=== PATIENT | male | born 1990 | race African-American/Black ===

== ENCOUNTER 2016-11-28 20:49 | Emergency (ER) | payer OTHER ==
[~2016-11-28] VITALS: Ht 190.5 cm; Wt 98.4 kg
[2016-11-28 20:49] VITALS: BP 138/84
[~2016-11-28 20:49] MED LIST: METH-37 PO; NAPR500T3 PO; TRAM50TA PO
[2016-11-28] MEDS ORDERED: METH4TAB2 PO (21:18)
--- NOTE | 2016-11-28 21:18 | PHYS DOC ---
Past History Past Medical History: No Pertinent History Past Surgical History: No Surgical History Alcohol Use: None Drug Use: None Adult General Chief Complaint Chief Complaint: SKIN RASH/ABSCESS HPI HPI Patient is a 26 year old male who presents with rash. 3-4 weeks ago he was out camping and developed a spot on his back and upper buttock area. It was initially pruritic. He was seen by physician and was diagnosed as fungal infection placed on antifungal cream. That area has improved significantly. Now has developed a rash on his arms and legs that started out as small clear blisters break open minimal scabbing heel. This seemed to be spreading. No purulent drainage however. No fever. He has scattered with no obvious pattern. No fever or chills. No other complaints or injuries. Review of Systems Review of Systems Constitutional: Denies fever or chills Musculoskeletal: Denies back pain or joint pain Integument: See history of present illness Neurologic: Denies headache Allergies Allergies Allergies Coded Allergies Type Severity Reaction Last Updated Verified No Known Drug Allergies 01/02/16 No Physical Exam Physical Exam Constitutional: Well developed, well nourished, no acute distress, non-toxic appearance. Skin: rash on the extremities both arms and legs (on both volar and dorsal surfaces) is maculopapular; raised; clear vesicles and some excoriated and scabbed. No lymphangitis; no erythema. Back: No tenderness, no CVA tenderness. He has a skin discoloration that is circular in appearance at the top of his anal crease. Extremities: No tenderness, no cyanosis, no clubbing, ROM intact, no edema. Neurologic: Alert and oriented X 3, normal motor function, normal sensory function, no focal deficits noted. Current Patient Data Vital Signs Reviewed Course & Med Decision Making Course & Med Decision Making He seems to have 2 skin diseases. No one the buttock area is more consistent with a fungal/tinea infection. He is treating that with antifungal cream assumes to be improving. We'll continue with that treatment. The arms and legs however have more of a contact dermatitis binding. Place on Medrol Dosepak. Obviously he was instructed if this does not improve his symptoms worsen he'll need to see a advertising director for skin biopsy. Dragon Disclaimer Dragon Disclaimer This chart was dictated in whole or in part using Voice Recognition software in a busy, high-work load, and often noisy Emergency Department environment. It may contain unintended and wholly unrecognized errors or omissions. Departure Departure: Impression: Primary Impression: Skin rash Additional Impressions: Contact dermatitis Body tinea Disposition: 01 HOME, SELF-CARE Condition: GOOD Referrals: JAUN CRAWFORD (PCP) Patient Instructions: Contact Dermatitis, [id number] Scripts Methylprednisolone (MEDROL) 4 Mg Tab.ds.pk 1 PKG PO UD, #1 PKG Prov: RICHARD VALDES MD 11/28/16 Problem Qualifiers Additional Impressions: Contact dermatitis Contact dermatitis type: unspecified RICHARD VALDES MD Nov 28, 2016 21:18
== END 2016-11-28 21:26 | disposition home or self-care (01) ==
LOC: ER 20:49
DX: L25.9 Unspecified contact dermatitis, unspecified cause (principal); B35.8 Other dermatophytoses
CPT/HCPCS: 99283